=== PATIENT | male | born 1980 | race Caucasian/White ===

== ENCOUNTER → 2019-08-07 | Outpatient (CLI) | payer OTHER ==
[~2019-08-07] MED LIST: HYDACE5 PO
[2019-08-07 20:19] LABS: Influenza A Negative (NEGATIVE); Influenza B Negative (NEGATIVE)
== END | disposition home or self-care (01) ==
LOC: LAB SHORT 18:55 → LAB 18:55
PROVIDERS: Nurse Practitioner Family
DX: J02.9 Acute pharyngitis, unspecified (principal)
CPT/HCPCS: 87804

== ENCOUNTER → 2024-07-23 | Outpatient (CLI) | payer OTHER ==
[2024-07-26 12:39] LABS: HSV 1 SUBTYPE BY PCR Detected; HSV 2 SUBTYPE BY PCR Not Detected; HSV SUBTYPE SOURCE MOUTH
== END | disposition home or self-care (01) ==
LOC: LAB 11:52 → LAB SHORT 11:52
PROVIDERS: Physician Assistant Medical
DX: K12.0 Recurrent oral aphthae (principal)
CPT/HCPCS: 87529